=== PATIENT | female | born 1995 | race Caucasian/White ===

== ENCOUNTER 2020-06-27 12:11 | Emergency (ER) | payer OTHER ==
[2020-06-27 12:35] LABS: BASOPHILS # (AUTO) 0.1 10^3/uL (0.0-0.1); BASOPHILS % (AUTO) 1.4 %; EOSINOPHILS # (AUTO) 0.1 10^3/uL (0.0-0.7); EOSINOPHILS % (AUTO) 1.2 %; HCT - HEMATOCRIT 37.6 % (37.0-47.0); HGB - HEMOGLOBIN 12.8 g/dL (12.0-16.0); LYMPHOCYTES # (AUTO) 1.3 10^3/uL (1.5-3.5); LYMPHOCYTES % (AUTO) 29.9 %; MEAN CORPUSCULAR HEMOGLOBIN 31.8 pg (27.0-31.0); MEAN CORPUSCULAR VOLUME 93.3 fL (81.0-99.0); MEAN PLATELET VOLUME 9.5 fL (7.9-10.8); MONOCYTES # (AUTO) 0.4 10^3/uL (0.0-1.0); MONOCYTES % (AUTO) 8.2 %; NEUTROPHILS # (AUTO) 2.5 10^3/uL (1.5-6.6); NEUTROPHILS % (AUTO) 59.1 %; PLT - PLATELET COUNT 309 10^3/uL (130-450); RED BLOOD COUNT 4.03 10^6/uL (4.20-5.40); RED CELL DISTRIBUTION WIDTH 11.4 % (12.0-15.0); WHITE BLOOD COUNT 4.3 x10^3/uL (4.8-10.8)
[2020-06-27 12:55] LABS: BILIRUBIN,URINE NEGATIVE (NEGATIVE); CLARITY,URINE CLEAR (CLEAR); GLUCOSE, URINE (UA) NEGATIVE (NEGATIVE); KETONES,URINE (UA) NEGATIVE (NEGATIVE); LEUKOCYTE ESTERASE, URINE NEGATIVE (NEGATIVE); NITRITE,URINE NEGATIVE (NEGATIVE); OCCULT BLOOD,URINE TRACE-INTA (NEGATIVE); PH,URINE 6.5 PH (5.0-7.5); PROTEIN,URINE NEGATIVE (NEGATIVE); UROBILINOGEN,URINE 0.2 (NORMAL) E.U./dL (NORMAL)
[2020-06-27 12:57] LABS: HCG UR QUAL NEGATIVE
[2020-06-27 13:01] LABS: ALBUMIN 4.7 g/dL (3.2-5.5); ALBUMIN/GLOBULIN RATIO 1.7 (1.0-2.2); BILIRUBIN,TOTAL 2.4 mg/dL (0.2-1.0); CALCIUM 9.2 mg/dL (8.5-10.3); CREATININE 0.6 mg/dL (0.4-1.0); POTASSIUM 3.4 mmol/L (3.5-5.0); TOTAL PROTEIN 7.5 g/dL (6.7-8.2)
[2020-06-27] MEDS ORDERED: LIDOCAINE 1% 2 ML VIAL MC ONE (15:34)
[2020-06-27] MEDS ORDERED: cefTRIAXone 250 MG VIAL IM STA (15:34)
[2020-06-27] MEDS ORDERED: AZITHROMYCIN 250 MG TABLET PO STA (15:35)
--- NOTE | 2020-06-27 15:43 | ED Physician Documentation ---
History of Present Illness - Stated complaint Stated Complaint: FEMALE - Chief complaint Chief Complaint: Abd Pain - Additonal information Additional information: 25-year-old female presents emergency department for evaluation of 3 weeks of vaginal spotting and what she reports is abnormal discharge. She was last sexually active outside of her relationship about 1 month ago. She then began having vaginal bleeding and spotting about 3 weeks ago. She reports that the bleeding lasted 1 week which she is consistent with her normal menstrual cycle but since then she has had an abnormal discharge and often has bloody spotting on her underwear. She denies pelvic pain or fevers. Has a history of genital herpes but no other sexually transmitted infections. Review of Systems Constitutional: reports: Reviewed and negative Eyes: reports: Loss of vision Ears: reports: Reviewed and negative Nose: reports: Reviewed and negative Cardiac: reports: Reviewed and negative Respiratory: reports: Reviewed and negative : reports: Discharge. denies: Dysuria, Frequency, Hesitancy Skin: reports: Reviewed and negative Musculoskeletal: reports: Reviewed and negative PD PAST MEDICAL HISTORY - Present Medications Home Medications: Ambulatory Orders Medication Instructions Recorded Confirmed metroNIDAZOLE [Flagyl] 500 mg PO BID #20 tablet 06/27/20 - Allergies Allergies/Adverse Reactions: Allergies Allergy/AdvReac Type Severity Reaction Status Date / Time No Known Drug Allergies Allergy Verified 06/27/20 12:14 PD ED PE EXPANDED - General General: Alert, No acute distress - Abdomen Abdomen: Normal Bowel sounds. No: Tender to palpation - Female Female : Normal external, Vaginal Discharge (Moderate amount of thin brown vaginal discharge. Cervix appears friable but there is no tenderness. No adnexal tenderness or uterine tenderness. No discharge seen from the cervical os.). No: Vaginal Bleeding Results - Vitals Vitals: Vital Signs - 24 hr 06/27/20 12:15 Temperature 37.1 C Heart Rate 74 Respiratory 18 Rate Blood Pressure 124/69 O2 Saturation 100 Oxygen O2 Source Room air - Labs Labs: Laboratory Tests 06/27/20 06/27/20 06/27/20 12:30 12:30 12:52 WBC 4.3 L RBC 4.03 L Hgb 12.8 Hct 37.6 MCV 93.3 MCH 31.8 H MCHC 34.0 RDW 11.4 L Plt Count 309 MPV 9.5 Neut # (Auto) 2.5 Lymph # (Auto) 1.3 L [place] # (Auto) 0.4 Eos # (Auto) 0.1 Baso # (Auto) 0.1 Absolute Nucleated RBC 0.00 Nucleated RBC % 0.0 Sodium 139 Potassium 3.4 L Chloride 106 Carbon Dioxide 26 Anion Gap 7.0 BUN 5 L Creatinine 0.6 Estimated GFR (MDRD) 120 Glucose 89 Calcium 9.2 Total Bilirubin 2.4 H AST 20 ALT 15 Alkaline Phosphatase 57 Total Protein 7.5 Albumin 4.7 Globulin 2.8 Albumin/Globulin Ratio 1.7 Lipase 39 Urine Color LT. YELLOW Urine Clarity CLEAR Urine pH 6.5 Ur Specific [place] <=1.005 Urine Protein NEGATIVE Urine Glucose (UA) NEGATIVE Urine Ketones NEGATIVE Urine Occult Blood TRACE-INTA Urine Nitrite NEGATIVE Urine Bilirubin NEGATIVE Urine Urobilinogen 0.2 (NORMAL) Ur Leukocyte Esterase NEGATIVE Ur Microscopic Review NOT INDICATED Urine Culture Comments NOT INDICATED Urine HCG, Qual NEGATIVE PD MEDICAL DECISION MAKING - ED course Complexity details: reviewed results, re-evaluated patient, d/w patient ED course: 25-year-old female presents emergency department for evaluation of vaginal discharge. This is in the setting of having non- At this time I am not suspicious for sexually transmitted infection. GC is pending but we will initiate treatment with ceftriaxone and azithromycin. I will also prescribe 1 week of Flagyl. This would be adequate to treat trichomonas or bacterial vaginosis. Patient is advised to follow-up with primary care provider. Emergent return precautions were discussed.monogamous unprotected intercourse outside of her relationship. Departure - Departure Disposition: 01 Home, Self Care Clinical Impression: Vaginal discharge Condition: Stable Record reviewed to determine appropriate education?: Yes Prescriptions: metroNIDAZOLE [Flagyl] 500 mg PO BID #20 tablet Comments: You were seen in the emergency department today for vaginal discharge. As we discussed I suspect that the symptoms may be related to recent sexual intercourse. We have given you an injection of an antibiotic as well as 1 tablet here in the emergency department that should be adequate to treat exposure to chlamydia or gonorrhea. However I would like you to fill the prescription for the Flagyl and begin taking as directed. This would be adequate treatment for bacterial vaginosis or trichomonas Monus. It is important you discuss this ED visit with your partner. I do advise close follow-up with [facility]. Return to the emergency department for fevers, suddenly severe lower pelvic pain or if you feel that your symptoms fail to improve.
[2020-06-27 15:55] VITALS: BP 107/57
[2020-06-27 22:34] LABS: CHLAMYDIA TRACHOMATIS DNA NEGATIVE (NEGATIVE); NEISSERIA GONORRHOEAE DNA NEGATIVE (NEGATIVE); TRICHOMONAS VAGINALIS DNA NEGATIVE (NEGATIVE)
== END 2020-06-27 16:00 | disposition home or self-care (01) ==
LOC: ED 12:11
DX: N89.8 Other specified noninflammatory disorders of vagina (principal)
CPT/HCPCS: 36415; 80053; 81003; 81025; 83690; 85025; 87210; 87491; 87591; 87661; 96372; 99283; A9270; 81001; 87086

== ENCOUNTER 2020-07-02 02:42 | Outpatient (CLI) | payer OTHER | END 2020-07-02 02:43 | disposition EMS.NT | LOC: EMS 02:42 | DX: R56.9 Unspecified convulsions (principal) ==

== ENCOUNTER 2020-07-02 03:51 | Emergency (ER) | payer OTHER ==
--- OUTSIDE RECORDS SUMMARY | 2020-07-02 04:07 | EXTERNAL MEDICAL SUMMARY RPT | Continuity of Care Document ---
:1995 Demographics Phone Unavailable Preferred Language Unknown Marital Status Unknown Adventist Affiliation Unknown Race Unknown Ethnic Group Unknown Author Organization [facility] Address [address] [place] [address] Phone Social History date description facility [id number]
--- NOTE | 2020-07-02 04:09 | ED Physician Documentation ---
PD HPI SYNCOPE - Stated complaint Stated Complaint: Syncope - Chief complaint Chief Complaint: Cardiac - History obtained from History obtained from: Patient, Family, EMS - History of Present Illness Witnessed: Witnessed Timing - onset: Today Duration: Seconds Preceding symptoms: Unknown Associated symptoms: Seizure Contributing factors: Other (extended travel from [place] one week ago.) Injury occurred: None Treatment DOLLY PUSHER: Fluids Similar symptoms before: Has not had sx before Recently seen: Emergency Dept (5 days ago) - Additional information Additional information: Previously well 25-year-old female got up to go to the bathroom this morning and apparently had a syncopal episode witnessed by her . He indicates that his got up to go to the bathroom he heard a thud in the bathroom and went in to investigate and found her on the floor. When he went to sit her up she had a syncopal episode and she came to quite quickly and the then tried to get her up more slowly when he got her up part way she began to fade out and had shaking of her whole body. He brought her back down to the ground and she came to relatively easily and was coherent. The patient has recently been on a prolonged car trip from [place] about 1 week ago. She denies any pain in her calves or swelling. She has had increased vaginal spotting for the past month and she has been into the emergency department for evaluation of vaginal discharge. She was treated for STD and given a prescription for Flagyl which she did not fill. She has bleeding approximately 1-2 pads per day. Review of Systems Constitutional: denies: Fever, Chills, Myalgias Eyes: denies: Decreased vision Ears: denies: Ear pain Nose: denies: Rhinorrhea / runny nose, Congestion Throat: denies: Sore throat Cardiac: denies: Chest pain / pressure, Palpitations, Pedal edema, Calf pain Respiratory: denies: Dyspnea, Cough GI: denies: Abdominal Pain, Nausea, Vomiting : reports: Vaginal bleeding, Irregular menses. denies: Dysuria, Frequency Skin: denies: Rash Musculoskeletal: denies: Neck pain, Back pain, Extremity pain Neurologic: reports: Syncope, Seizure, Headache. denies: Generalized weakness, Focal weakness, Numbness, Difficulty speaking, Confused, Altered mental status, Head injury, LOC PD PAST MEDICAL HISTORY - Present Medications Home Medications: Ambulatory Orders Medication Instructions Recorded Confirmed No Known Home Medications 07/02/20 07/02/20 - Allergies Allergies/Adverse Reactions: Allergies Allergy/AdvReac Type Severity Reaction Status Date / Time No Known Drug Allergies Allergy Verified 07/02/20 03:59 PD ED PE NORMAL - Vitals Vital signs reviewed: Yes (hypotensive ) - General General: Alert and oriented X 3, No acute distress, Well developed/nourished, Other (flat affect and quiet) - HEENT HEENT: Atraumatic, PERRL, EOMI - Neck Neck: Supple, no meningeal sign, No bony TTP - Cardiac Cardiac: RRR, No murmur - Respiratory Respiratory: No respiratory distress, Clear bilaterally, Other (diminished breath sounds bilat) - Abdomen Abdomen: Soft, Non tender - Back Back: No CVA TTP, No spinal TTP - Derm Derm: Normal color, Warm and dry, No rash - Extremities Extremities: No deformity, No edema - Neuro Neuro: Alert and oriented X 3, emc storage architect 2-12 intact, No motor deficit, No sensory deficit, Normal speech Eye Opening: Spontaneous Motor: Obeys Commands Verbal: Oriented GCS Score: 15 - Psych Psych: Normal mood, Other (affect is flat) Results - Vitals Vitals: Vital Signs - 24 hr 07/02/20 07/02/20 07/02/20 04:00 04:03 04:33 Temperature 98.1 C H 36.7 C 36.7 C Heart Rate 69 69 70 Respiratory 15 15 15 Rate Blood Pressure 97/46 L 97/46 L 88/46 L O2 Saturation 100 100 100 07/02/20 07/02/20 07/02/20 04:47 05:01 05:30 Temperature 36.7 C 36.7 C 36.7 C Heart Rate 64 61 68 Respiratory 15 15 15 Rate Blood Pressure 90/50 L 94/48 L 97/47 L O2 Saturation 98 98 100 07/02/20 06:00 Temperature 36.7 C Heart Rate 70 Respiratory 15 Rate Blood Pressure 99/48 L O2 Saturation 100 Oxygen O2 Source Room air - EKG (time done) 0415 Rate: Rate (enter#) (67) Rhythm: NSR, LAE Ischemia: Non specific changes (flat or negative T waves anterior) Compare to prior EKG: Old EKG unavailable Computer interpretation: Agree with computer - Labs Labs: Laboratory Tests 07/02/20 07/02/20 07/02/20 04:15 04:15 04:15 WBC 6.2 RBC 3.58 L Hgb 11.4 L Hct 33.9 L MCV 94.7 MCH 31.8 H MCHC 33.6 RDW 11.4 L Plt Count 263 MPV 9.8 Neut # (Auto) 4.5 Lymph # (Auto) 1.1 L [place] # (Auto) 0.5 Eos # (Auto) 0.0 Baso # (Auto) 0.1 Absolute Nucleated RBC 0.00 Nucleated RBC % 0.0 D-Dimer 200.8 Sodium 142 Potassium 3.4 L Chloride 107 Carbon Dioxide 25 Anion Gap 10.0 BUN 8 Creatinine 0.8 Estimated GFR (MDRD) 86 L Glucose 104 H Calcium 8.7 Total Bilirubin 1.0 AST 23 ALT 19 Alkaline Phosphatase 50 Troponin I High Sens Total Protein 6.6 L Albumin 4.2 Globulin 2.4 Albumin/Globulin Ratio 1.8 Lipase 25 HCG, Quant 07/02/20 07/02/20 04:15 04:15 WBC RBC Hgb Hct MCV MCH MCHC RDW Plt Count MPV Neut # (Auto) Lymph # (Auto) [place] # (Auto) Eos # (Auto) Baso # (Auto) Absolute Nucleated RBC Nucleated RBC % D-Dimer Sodium Potassium Chloride Carbon Dioxide Anion Gap BUN Creatinine Estimated GFR (MDRD) Glucose Calcium Total Bilirubin AST ALT Alkaline Phosphatase Troponin I High Sens 3.5 Total Protein Albumin Globulin Albumin/Globulin Ratio Lipase HCG, Quant < 0.60 Procedures - IVC sono (time) 0410 Bedside IVC sono: IVC measures (cm) (2.42), IVC collapsed c insp (cm) (1.77), Collapsibility index (0.26), High CVP PD MEDICAL DECISION MAKING - ED course Complexity details: reviewed old records, reviewed results, re-evaluated patient, considered differential, d/w patient ED course: 25-year-old female with 3 syncopal episodes this morning 1 with a brief tonic-clonic jerking arrives to the emergency department with a flattened affect but without other specific physical findings with the exception of an increase in her heart rate with sitting up in the bed and an elevated central venous pressure. She has had a recent long car trip and a CT angio of the chest is ordered. This initially fails when the IV malfunctions and the study is repeated. At shift change the patient's care is turned over to Dr. Buck.
[2020-07-02 04:33] LABS: BASOPHILS # (AUTO) 0.1 10^3/uL (0.0-0.1); BASOPHILS % (AUTO) 0.8 %; EOSINOPHILS % (AUTO) 0.3 %; HCT - HEMATOCRIT 33.9 % (37.0-47.0); HGB - HEMOGLOBIN 11.4 g/dL (12.0-16.0); LYMPHOCYTES # (AUTO) 1.1 10^3/uL (1.5-3.5); LYMPHOCYTES % (AUTO) 17.6 %; MEAN CORPUSCULAR HEMOGLOBIN 31.8 pg (27.0-31.0); MEAN CORPUSCULAR HGB CONC 33.6 g/dL (32.0-36.0); MEAN CORPUSCULAR VOLUME 94.7 fL (81.0-99.0); MEAN PLATELET VOLUME 9.8 fL (7.9-10.8); MONOCYTES # (AUTO) 0.5 10^3/uL (0.0-1.0); MONOCYTES % (AUTO) 7.8 %; NEUTROPHILS # (AUTO) 4.5 10^3/uL (1.5-6.6); NEUTROPHILS % (AUTO) 73.3 %; PLT - PLATELET COUNT 263 10^3/uL (130-450); RED BLOOD COUNT 3.58 10^6/uL (4.20-5.40); RED CELL DISTRIBUTION WIDTH 11.4 % (12.0-15.0); WHITE BLOOD COUNT 6.2 x10^3/uL (4.8-10.8)
[2020-07-02] MEDS ORDERED: IOPAMIDOL-300 100 ML VIAL ONE ×2 (04:40→06:01)
[2020-07-02 04:47] LABS: ALBUMIN 4.2 g/dL (3.2-5.5); ALBUMIN/GLOBULIN RATIO 1.8 (1.0-2.2); CALCIUM 8.7 mg/dL (8.5-10.3); CREATININE 0.8 mg/dL (0.4-1.0); POTASSIUM 3.4 mmol/L (3.5-5.0); TOTAL PROTEIN 6.6 g/dL (6.7-8.2)
[2020-07-02] MEDS ORDERED: SODIUM CHLORIDE 0.9% 1,000 ML IV STA ×2 (06:12→07:45)
[2020-07-02] MEDS ORDERED: IOPAMIDOL-300 100 ML VIAL IVP ONE (06:46)
[2020-07-02 07:50] LABS: BILIRUBIN,URINE NEGATIVE (NEGATIVE); GLUCOSE, URINE (UA) NEGATIVE (NEGATIVE); KETONES,URINE (UA) NEGATIVE (NEGATIVE); LEUKOCYTE ESTERASE, URINE NEGATIVE (NEGATIVE); NITRITE,URINE NEGATIVE (NEGATIVE); OCCULT BLOOD,URINE SMALL (NEGATIVE); PROTEIN,URINE NEGATIVE (NEGATIVE); UROBILINOGEN,URINE 0.2 (NORMAL) E.U./dL (NORMAL)
[2020-07-02 07:51] LABS: CLARITY,URINE CLEAR (CLEAR); HCG UR QUAL NEGATIVE
[2020-07-02 07:53] LABS: BACTERIA,URINE None Seen /HPF (None Seen); RBC,URINE 0-5 /HPF (0-5); SQUAMOUS EPITHELIAL CELL,UR RARE Squamous (<= Few); WBC,URINE 0-3 /HPF (0-5)
--- NOTE | 2020-07-02 08:22 | CT Report ---
PROCEDURE: HEAD WO INDICATIONS: headache, syncope, seizure TECHNIQUE: Noncontrast 4.5 mm thick angled axial sections acquired from the foramen magnum to the vertex. For r adiation dose reduction, the following was used: automated exposure control, adjustment of mA and/or kV according to patient size. COMPARISON: None. FINDINGS: Image quality: Excellent. CSF spaces: Basal cisterns are patent. No extra-axial fluid collections. Ventricles are normal in size and shape. Brain: No midline shift. No intracranial masses or hemorrhage. Myers-white matter interface is norm al. Skull and face: Calvarium and visualized facial bones are intact, without suspicious lesions. Sinuses: Visualized sinuses and mastoids are clear. IMPRESSION: No acute intracranial process. Findings are concordant with the preliminary study interpretation provided at the time of the study. Reviewed by: Qasim Ruiz MD on 07/02/2020 8:21 AM PDT Approved by: Qasim Ruiz MD on 07/02/2020 8:21 AM PDT Station ID: [id number]
--- NOTE | 2020-07-02 08:32 | CT Report ---
PROCEDURE: ANGIO CHEST W/WO INDICATIONS: long car trip, syncope/seizure, unstable vitals CONTRAST: IV CONTRAST: Isovue 300 ml: 80 PO CONTRAST: *NO PO CONTRAST TECHNIQUE: After the administration of intravenous contrast, 2 mm thick sections acquired from the pulmonary api jennifer to the posterior costophrenic angles. 3-dimensional maximum intensity projection (MIP) coronal a nd sagittal reformats were then acquired through the thorax. For radiation dose reduction, the follow ing was used: automated exposure control, adjustment of mA and/or kV according to patient size. COMPARISON: None. FINDINGS: Image quality: Excellent. Pulmonary arteries: Pulmonary arteries are normal in size, and demonstrate no intraluminal filling d efects to suggest central pulmonary embolism. Lungs and pleura: Lungs are clear. No pleural effusions or pneumothorax. Central and peripheral ai rways are patent. Mediastinum: Heart size is normal, without pericardial effusion. No mediastinal or hilar adenopathy . Thoracic aorta is normal in caliber and enhancement. Esophagus is normal in caliber, without hiat al hernia. Bones and chest wall: No suspicious bony lesions. Ribs and thoracic spine appear intact throughout. The thyroid is normal. No axillary or supraclavicular adenopathy. Abdomen: Visualized upper abdominal solid organs appear normal in the early arterial phase of enhanc ement. IMPRESSION: No evidence of pulmonary embolism. Scattered subsegmental scarring/atelectasis. No acute consolidatio n. Findings are concordant with the preliminary study interpretation provided at the time of the study. Reviewed by: Qasim Ruiz MD on 07/02/2020 8:31 AM PDT Approved by: Qasim Ruiz MD on 07/02/2020 8:31 AM PDT Station ID: [id number]
[2020-07-02 09:09] LABS: MUDS CUTOFF CONCENTRATIONS CUTOFF CONC BELOW:
[2020-07-02 09:11] VITALS: BP 101/55
[2020-07-02 09:21] LABS: AMPHETAMINE SCREEN,URINE NEGATIVE (NEGATIVE); BARBITURATE SCREEN,UR NEGATIVE (NEGATIVE); BENZODIAZEPINES SCREEN, URINE NEGATIVE (NEGATIVE); COCAINE SCREEN URINE NEGATIVE (NEGATIVE); METHADONE SCREEN, URINE NEGATIVE (NEGATIVE); METHAMPHETAMINES SCREEN, URINE NEGATIVE (NEGATIVE); OPIATE SCREEN, URINE NEGATIVE (NEGATIVE); OXYCODONE SCREEN, URINE NEGATIVE (NEGATIVE); PROPOXYPHENE SCREEN, URINE NEGATIVE (NEGATIVE); THC CANNABINOID SCREEN, URINE POSITIVE (NEGATIVE); TRICYCLIC ANTIDEPRESSANT,URINE NEGATIVE (NEGATIVE)
== END 2020-07-02 09:17 | disposition home or self-care (01) ==
LOC: EDUNIT# → EDBD → ED 03:51
DX: I95.1 Orthostatic hypotension (principal); R25.8 Other abnormal involuntary movements; R56.9 Unspecified convulsions; R51.9 Headache, unspecified; N93.9 Abnormal uterine and vaginal bleeding, unspecified
CPT/HCPCS: 36415; 70450; 71275; 80053; 80306; 80320; 81001; 81025; 83690; 84484; 84702; 85025; 85379; 93005; 96360; 99284; Q9967; 81003; 87086